=== PATIENT | female | born 1970 | race Caucasian/White ===

== ENCOUNTER 2018-12-10 10:58 | Emergency (ER) | payer SELFPAY ==
[~2018-12-10] VITALS: Ht 162.6 cm; Wt 59.1 kg
[2018-12-10 10:59] VITALS: BP 115/75; PULSE 108; RESP 24; Ht 162.6 cm; Wt 59.1 kg
[2018-12-10] MEDS ORDERED: POLY10DR19 LEFT EYE (11:31)
[2018-12-10] MEDS ORDERED: SULF1TAB31 PO (11:31)
--- NOTE | 2018-12-10 11:44 | ERD ---
ER Documentation Chief Complaint Chief Complaint LEFT EYE PAIN/REDNESS HPI 48-year-old female presents for left eye pain and redness times 1 day. She states that she feels irritation. She states that the pain is mild but noted to be 2 out of 10. She denies fevers. She denies foreign body sensation. She states that her vision is normal. She does state that she had pus drainage from the eye for couple days. She has had problems with her eyes in the past and was told she had cellulitis. ROS All systems reviewed and are negative except as per history of present illness. Medications Home Meds Active Scripts Sulfamethoxazole/Trimethoprim* (Bactrim Ds* Tablet) 1 Each Tablet, 1 TAB PO BID for preseptal cellulitis for 7 Days, #14 TAB Prov:SANTI DOUGHERTY DO 12/10/18 Polymyxin B Sulfate-TMP* (Polymyxin B-TMP Eye Drops*) 10 Ml Drops, 1 DROP LEFT EYE QID for conjunctivitis for 7 Days, #1 BOTTLE Prov:SANTI DOUGHERTY DO 12/10/18 Physical Exam Vitals Vital Signs Date Temp Pulse Resp B/P (MAP) Pulse Ox O2 O2 Flow FiO2 Time Delivery Rate 12/10/18 98.6 108 24 115/75 100 10:59 (88) Physical Exam Const: No acute distress Head: Atraumatic Eyes: Left eye injections noted, no foreign body on examination, EOMI without pain with eye movement, PERRL, there is also lower eyelid swelling and soft tissue, visual acuity 20/50 bilateral ENT: Normal External Ears, Nose and Mouth. Neck: Full range of motion. No meningismus. Resp: Clear to auscultation bilaterally Cardio: Regular rate and rhythm, no murmurs Skin: No petechiae or rashes Neur: Awake and alert Psych: Normal Mood and Affect Procedures/MDM Medical Decision Making: Differential diagnosis includes but not limited to bacterial conjunctivitis, viral urethritis, preseptal cellulitis, keratitis, glaucoma Patient appeared well on physical exam. Left eye with conjunctival injections, there is also left lower eyelid and soft tissue swelling noted Visual acuity intact Bilateral eyes are reactive there is minimal pain, low suspicion for glaucoma No foreign body sensation to suggest keratitis Physical examination consistent with a bacterial conjunctivitis as well as a preseptal cellulitis Prescription(s): Patient given prescription for Bactrim and Polytrim eyedrop. Advised the patient will need to see ophthalmology. Patient advised to follow up with PCP in 1-2 days. Patient advised to return to ED for new or worsening symptoms. Patient stable on discharge from the ED. Disclaimer: Inadvertent spelling and grammatical errors are likely due to EHR/dictation software use and do not reflect on the overall quality of patient care. Also, please note that the electronic time recorded on this note does not necessarily reflect the actual time of the patient encounter. Departure Diagnosis: Primary Impression: Redness of eye, left Additional Impression: Swollen eyelid Laterality: left Qualified Codes: H02.846 - Edema of left eye, unspecified eyelid Condition: Fair Patient Instructions: Conjunctivitis Caused by Infection, Cellulitis Referrals: [facility] YOU HAVE RECEIVED A MEDICAL SCREENING EXAM AND THE RESULTS INDICATE THAT YOU DO NOT HAVE A CONDITION THAT REQUIRES URGENT TREATMENT IN THE EMERGENCY DEPARTMENT. FURTHER EVALUATION AND TREATMENT OF YOUR CONDITION CAN WAIT UNTIL YOU ARE SEEN IN YOUR DOCTORS OFFICE WITHIN THE NEXT 1-2 DAYS. IT IS YOUR RESPONSIBILITY TO MAKE AN APPOINTMENT FOR FOLOW-UP CARE. IF YOU HAVE A PRIMARY DOCTOR --you should call your primary doctor and schedule an appointment IF YOU DO NOT HAVE A PRIMARY DOCTOR YOU CAN CALL OUR PHYSICIAN REFERRAL HOTLINE AT IF YOU CAN NOT AFFORD TO SEE A PHYSICIAN YOU CAN CHOSE FROM THE [facility] [id number] [facility]. [facility] [address] [facility]. [facility] [place] [address] [facility] [facility] [address] [facility]. [facility] [address] [facility]. [facility]. [address] Additional Instructions: Call your primary care doctor TOMORROW for an appointment during the next 1-2 days.See the doctor sooner or return here if your condition worsens before your appointment time. May need to follow up with ophthalmology if symptoms do not improve in 1-2 days with treatment. SANTI DOUGHERTY DO Dec 10, 2018 11:44
== END 2018-12-10 11:46 | disposition home or self-care (01) ==
LOC: FTE 10:58
DX: H02.845 Edema of left lower eyelid (principal)
CPT/HCPCS: 99283